=== PATIENT | female | born 1960 | race Caucasian/White ===

== ENCOUNTER 2022-06-03 19:13 | Emergency (ER) | payer OTHER, BC, SELFPAY ==
[2022-06-03 19:19] VITALS: BP 105/66; PULSE 93; RESP 18; TEMP 36.3; O2SAT 96; BMI 31.2
--- NOTE | 2022-06-03 19:55 | CRLHL7_ITS ---
For Patients: As a result of the Century Cures Act, medical imaging exams and procedure reports are released immediately into your electronic medical record. You may view this report before your referring provider. If you have questions, please contact your health care provider. INDICATION: Head injury. TECHNIQUE: CT head without contrast. COMPARISON: None. FINDINGS: Cerebral parenchyma: No evidence of acute territorial infarct. No acute intraparenchymal hemorrhage. No significant mass effect/midline shift. Normal fernandes-white matter differentiation. Extra-axial spaces: No extra-axial collection or hemorrhage. Ventricles: Unremarkable. Calvarium: Intact. Visualized paranasal sinuses/mastoid air cells: Mild polypoid mucosal thickening of the bilateral maxillary sinuses. Posterior fossa: No cerebellar tonsillar herniation. Visualized orbits: Unremarkable. IMPRESSION: No acute intracranial abnormality. Specifically, no evidence of acute intracranial hemorrhage. Please note that all CT scans at this facility use dose modulation, iterative reconstruction, and/or weight-based dosing when appropriate to reduce radiation dose to as low as reasonably achievable. Dictated by Dorothea Santizo MD @ 06/03/2022 8:32:28 PM (Electronically Signed)
--- NOTE | 2022-06-03 19:55 | ED.GENADULT ---
HPI - General Adult General Chief complaint: Unspecified Complaint, Adult Stated complaint: FALL AND HIT BACK OF HEAD,BLURRED VISION Time Seen by Provider: 06/03/22 19:16 History of Present Illness HPI narrative: This 62-year-old female comes in for evaluation of a fall that occurred at work several hours prior to arrival. She states that she was with another person caring a Pallet. She was walking backwards and tripped over the palate fork behind her. She fell backwards hitting her head. She did not lose consciousness. The palate then fell on top of her. After a few minutes she was able to get up and ambulate normally. She does not complain of much discomfort but noticed after a few hours that she had blurred vision. She does not report any significant headache and does not have any neurologic deficits. She did drive herself here. She is not on any anticoagulants. She states that she was wearing her hair in a Bon and this gave some cushion when she hit her head. Related Data Home Medications Medication Instructions Recorded Confirmed No Known Home Medications 06/03/22 06/03/22 Allergies Allergy/AdvReac Type Severity Reaction Status Date / Time No Known Drug Allergies Allergy Verified 06/03/22 19:24 Review of Systems Narrative: Constitutional: No fevers, no weight gain or loss. Eyes: No discharge. She reports blurry vision. HENT: No congestion, no sore throat, no ear pain. Cardiovascular: No chest pain, no palpitations. Respiratory: No shortness of breath, no wheezes, no cough. Gastrointestinal: No abdominal pain, no vomiting, no diarrhea. Genitourinary: No dysuria, no hematuria. Musculoskeletal: Normal range of motion. Skin: No rashes, no pruritis. Neurological: No dizziness, weakness, sensory change, speech change. Endo/Heme/Allergies: No bruising or bleeding. No polydipsia. Pysch: no suicidality, no anxiety, no insomnia. All other systems reviewed and are negative. PFSH PFSH Social History Smoking Status: Former smoker Do you use any of these nicotine containing products: None How often do you have a drink containing alcohol: never AUDIT-C Alcohol total score: 0 Non-prescribed substance use: denies use Exam Narrative: Exam Narrative: Constitutional: Well-developed, well-nourished, no acute distress. HEENT: Normocephalic, atraumatic. No sign of laceration, abrasion, or hematoma. Neck: Normal range of motion. Nontender. No midline tenderness when palpating along the spine. Supple. Heart: Regular. No murmurs. Normal rate. Intact distal pulses. Lungs: Clear to auscultation. No chest discomfort. No wheezes, rhonchi, or rales. Abdomen: Normal bowel sounds. Nontender. No rebound tenderness. Genitalia: Deferred. Back: No midline tenderness. Normal range of motion. Extremities: Normal range of motion. No injury. Skin: Intact. No rash. Warm. No erythema or pallor. Neurologic: No altered sensation. No weakness. Alert and oriented. Psychiatric: No suicidality. No anxiety or depression. No insomnia. Nursing notes and vitals signs are reviewed. Const: Vital Signs, click to edit/add: Vital Signs - 24 hr 06/03/22 19:19 06/03/22 20:12 Temperature 97.3 F L Pulse Rate [Left P ulse Oximeter] 93 Respiratory Rate 18 Respiratory Rate [ Left Generalized] 18 Blood Pressure [Ri ght Upper Arm] 105/66 Pulse Oximetry 96 Course Vital Signs Vital signs: Initial Vital Signs Temperature 97.3 F L 06/03/22 19:19 Temperature Source Temporal Artery Scan 06/03/22 19:19 Pulse Rate 93 06/03/22 19:19 Respiratory Rate 18 06/03/22 19:19 Blood Pressure 105/66 06/03/22 19:19 Blood Pressure Mean 79 06/03/22 19:19 Blood Pressure Position Sitting 06/03/22 19:19 Pulse Oximetry 96 06/03/22 19:19 Oxygen Delivery Method 06/03/22 19:19 Vital Signs Temperature 97.3 F L 06/03/22 19:19 Pulse Rate 93 06/03/22 19:19 Respiratory Rate 18 06/03/22 19:19 Blood Pressure 105/66 06/03/22 19:19 Pulse Oximetry 96 06/03/22 19:19 Temperature 97.3 F L 06/03/22 19:19 Pulse Rate 93 06/03/22 19:19 Respiratory Rate 18 06/03/22 20:12 Blood Pressure 105/66 06/03/22 19:19 Pulse Oximetry 96 06/03/22 19:19 Medical Decision Making MDM Narrative Medical decision making narrative: This patient comes in with injuries as stated above. She did not have loss of consciousness and does not have a headache currently. She did have some blurred vision and because this was a work related injury she was instructed to come in for evaluation. She is not on any blood thinners but nevertheless a CT scan of her head was obtained and returns with no sign of acute findings. The patient states that she feels well and would like to return home to continue normal activities. Imaging Data CT scan - head: Radiologist's impression: No acute intracranial abnormality. Specifically, no evidence of acute intracranial hemorrhage. Discharge Plan Discharge Clinical Impression: Contusion of head Patient Disposition: Home, Self-Care Condition: Stable Instructions: Contusion in Adults (ED) Additional Instructions: Take medication as needed and indicated. Follow up with MD or return if worsening. Prescriptions: No Action No Known Home Medications 0RF Follow Up/Referrals: Jett Macedo MD [Primary Care Provider] - Stand Alone Forms: [employer] Info Instructions
[2022-06-03 20:12] VITALS: RESP 18; O2SAT 98
--- NOTE | 2022-06-03 20:47 | ED.NURSE ---
pt with no blurred vision at this time.
== END 2022-06-03 21:15 | disposition home or self-care (01) ==
PROVIDERS: Emergency Provider Emergency Medicine Emergency Medical Services; PCP Family Medicine
DX: R42 Dizziness and giddiness (principal)
CPT/HCPCS: 70450; 99283; 99284

== ENCOUNTER 2022-06-12 01:20 | Outpatient (CLI) | payer OTHER, BC, SELFPAY | END 2022-06-12 01:21 | disposition home or self-care (01) | LOC: AMB 06-25 12:17 | PROVIDERS: PCP Family Medicine; Visit Provider Emergency Medicine | DX: R42 Dizziness and giddiness (principal) | CPT/HCPCS: A0425; A0427 ==

== ENCOUNTER 2022-06-12 01:44 | Emergency (ER) | payer OTHER, BC, SELFPAY ==
--- NOTE | 2022-06-12 01:47 | ED_ITS ---
HPI - Dizziness General Chief Complaint: Dizziness/Vertigo Stated Complaint: Vertigo Time Seen by Provider: 06/12/22 01:45 History of Present Illness HPI Narrative: A 62-year-old woman who had a mild kink ago she had negative CT scan and was treated symptomatically with ibuprofen. Patient woke 1 hour ago with severe vertigo. She immediately called for an ambulance and upon arrival her symptoms had resolved. She now is having paroxysms of vertigo which seem to be worsened with movement. She has had some nausea but no vomiting she has no other neurologic symptoms otherwise been feeling fine. Related Data Home Medications Medication Instructions Recorded Confirmed No Known Home Medications 06/03/22 06/03/22 Allergies Allergy/AdvReac Type Severity Reaction Status Date / Time No Known Drug Allergies Allergy Verified 06/03/22 19:24 Review of Systems Status of ROS: Reports: 10 or more systems reviewed and unremarkable except as noted in History and below [facility] Social History Smoking Status: Former smoker Do you use any of these nicotine containing products: None How often do you have a drink containing alcohol: never AUDIT-C Alcohol total score: 0 Non-prescribed substance use: denies use Exam Narrative: Exam Narrative: EXAM GENERAL: Patient appears comfortable and well. EYES: No scleral icterus. ENT: Tympanic membranes and oropharynx normal. THYROID: no thyroid nodules or thyromegaly. LYMPH: No supraclavicular or cervical lymphadenopathy. SKIN: Visible skin seen during exam normal or with benign process only. EXT: No dependent lower extremity pedal edema. HEART: Regular rate and rhythm with no murmurs, rubs, or gallops. LUNGS: Clear to auscultation bilaterally with no crackles or wheezes. ABD: Soft, non tender, non distended. PSYCH: Good eye contact, speech is not pressured. Course Course Hospital Course: Nature of the diagnosis is described. MDM - Dizziness MDM Narrative Medical decision making narrative: Patient recent head injury and now has vertigo. She has no other neurologic symptoms I do not believe she warrants further imaging. Discharge Plan Discharge Clinical Impression: Vertigo Patient Disposition: Home, Self-Care Condition: Stable Instructions: Vertigo (ED) Additional Instructions: Nicko maneuver as described Rest Fluids Ativan as needed Activity Level: No Restrictions Discharge Diet: Regular Prescriptions: No Action No Known Home Medications Follow Up/Referrals: Jett Macedo MD [Primary Care Provider] - Stand Alone Forms: [employer] Info Instructions
[2022-06-12 01:49] VITALS: BP 136/73; PULSE 73; RESP 16; TEMP 36.4; O2SAT 97; BMI 26.8
[2022-06-12 01:54] VITALS: BP 136/73; PULSE 73; RESP 16; TEMP 36.4; O2SAT 97
[2022-06-12 02:04] VITALS: BP 136/73; PULSE 73; RESP 16; TEMP 36.4
== END 2022-06-12 02:07 | disposition home or self-care (01) ==
LOC: ED 02:03
PROVIDERS: Emergency Provider Internal Medicine; PCP Family Medicine
DX: R42 Dizziness and giddiness (principal)
CPT/HCPCS: 99282; 99283

== ENCOUNTER 2023-06-16 10:15 | Outpatient (RCR) | payer BC, SELFPAY | END 2023-07-29 12:14 | disposition home or self-care (01) | PROVIDERS: PCP Family Medicine; Visit Provider Family Medicine | DX: Z51.89 Encounter for other specified aftercare (principal); G89.29 Other chronic pain; G57.02 Lesion of sciatic nerve, left lower limb; S39.012D Strain of muscle, fascia and tendon of lower back, subsequent encounter; M54.42 Lumbago with sciatica, left side | CPT/HCPCS: 97110; 97140; 97161 ==